=== PATIENT | female | born 1960 | race American Indian/Alaskan Native ===

== ENCOUNTER 2020-06-08 10:11 | Inpatient (IN) | payer OTHER ==
[2020-06-08 10:57] LABS: Basophils % (Auto) 0.3 % (0.0-1.8); Hematocrit 46.8 % (30.3-42.9); Hemoglobin 15.4 gm/dl (10.1-14.3); Lymphocytes # (Auto) 1.6 K/mm3 (1.2-5.4); Lymphocytes % (Auto) 22.7 % (13.4-35.0); Mean Corpuscular HGB Conc 33 % (30-34); Mean Corpuscular Volume 93 fl (79-97); Monocytes # (Auto) 0.7 K/mm3 (0.0-0.8); Monocytes % (Auto) 9.4 % (0.0-7.3); Platelet Count 223 K/mm3 (140-440); Red Blood Count 5.01 M/mm3 (3.65-5.03)
[2020-06-08 11:22] LABS: Alanine Aminotransferase 51 units/L (7-56); Albumin 3.4 g/dL (3.9-5); BUN/Creatinine Ratio 19; Blood Urea Nitrogen 19 mg/dL (7-17); Calcium 9.6 mg/dL (8.4-10.2); Hemolysis Index 25
[2020-06-08] MEDS ORDERED: ONDANSETRON 4 MG/2 ML INJ IV ONE (11:33)
--- NOTE | 2020-06-08 11:36 | Emergency Department Report ---
HPI - General Chief Complaint: Upper Respiratory Infection Time Seen by Provider: 06/08/20 11:12 - HPI HPI: This is a 59-year-old -Mexican female, who is known to be Covid positive, who presents to the emergency department with complaint of nausea, vomiting, diarrhea, body aches, intermittent fever, shortness of breath and cough. The patient came to [place] from [place] to visit her sister. When she arrived here the patient started feeling ill and was taken to [facility] of the [facility] where she stayed for 3 days and tested positive for Covid 19. The patient has a past medical history of CHF, hypertension and says that she has only 1 functional lung. Apparently the patient does not have any left- sided lung function secondary to a traumatic pneumothorax that was supposedly never fixed. The patient has been taking some [id number] medications but nothing yet today. ED Past Medical Hx - Past Medical History Hx Hypertension: Yes Hx Congestive Heart Failure: Yes Hx Diabetes: Yes Additional medical history: CHOLESTROL, "bad lung" - Surgical History Hx Cholecystectomy: Yes Additional Surgical History: hysterectomy, intestinal blockage, hernia, right ankle, tonsillectomy - Social History Smoking Status: Never Smoker Substance Use Type: None ED Review of Systems ROS: Stated complaint: FEVER,COUGH Other details as noted in HPI Comment: All other systems reviewed and negative Constitutional: chills, fever Eyes: denies: eye pain, vision change ENT: denies: ear pain, throat pain Respiratory: cough, shortness of breath Cardiovascular: denies: chest pain, palpitations Gastrointestinal: nausea, vomiting, diarrhea. denies: abdominal pain Genitourinary: denies: dysuria, discharge Musculoskeletal: myalgia. denies: joint swelling Skin: denies: rash, lesions Neurological: denies: weakness, numbness Physical Exam - Physical Exam Vital Signs: Vital Signs 06/08/20 10:19 Temperature 98.2 F Pulse Rate 106 H Respiratory 24 Rate Blood Pressure 122/57 O2 Sat by Pulse 84 Oximetry Physical Exam: GENERAL: The patient is well-developed well-nourished. HENT: Normocephalic. Atraumatic. Patient has moist mucous membranes. EYES: Extraocular motions are intact. NECK: Supple. Trachea is midline. CHEST/LUNGS: Tachypnea but no accessory muscle use. A productive sounding cough heard during examination. HEART/CARDIOVASCULAR: Regular. There is mild tachycardia. There is no murmur. ABDOMEN: Abdomen is soft, nontender. Patient has normal bowel sounds. Obese habitus. SKIN: Skin is warm and dry. NEURO: The patient is awake, alert, and oriented. The patient is cooperative. The patient has no focal neurologic deficits. Normal speech. MUSCULOSKELETAL: There is no tenderness or deformity. There is no limitation r christi of motion. There is no evidence of acute injury. ED Course Vital Signs 06/08/20 10:19 Temperature 98.2 F Pulse Rate 106 H Respiratory 24 Rate Blood Pressure 122/57 O2 Sat by Pulse 84 Oximetry - Reevaluation(s) Reevaluation #1: 06/08/20 12:47 Multiple attempts were made by the nurse for peripheral IV placement. I attempted peripheral IV placement by ultrasound guidance without success. IV team paged. ED Medical Decision Making - Lab Data Result diagrams: 06/08/20 10:26 06/08/20 10:26 - Radiology Data Radiology results: report reviewed CHEST 1 VIEW 06/08/2020 10:31 AM INDICATION / CLINICAL INFORMATION: Shortness of breath. COMPARISON: 06/02/2020 FINDINGS: SUPPORT DEVICES: None. HEART / MEDIASTINUM: No significant abnormality. LUNGS / PLEURA: Interval development of mild patchy opacities in the left mid and lower lung. No pneumothorax. ADDITIONAL FINDINGS: Unchanged elevation right hemidiaphragm. IMPRESSION: 1. Interval development of patchy opacities in the left mid and lower lung that could represent atelectasis or infectious process, possibly viral pneumonia. - Medical Decision Making This patient was already known to be positive for Covid 19 after being tested at another [facility] facility. She continues to have multiple symptoms but the shortness of breath is concerning as the patient presents with a room air pulse ox of about 84%. She was placed on supplemental oxygen via nasal cannula and s he improved into the low 90s. Chest x-ray shows bilateral patchy opacities concerning for pneumonia. Patient was started on IV antibiotics. She has been given Tylenol for headache, IV analgesia, antiemetics, steroids. The patient will be admitted to the hospital for further evaluation and treatment and was accepted for admission by the hospitalist service. Critical Care Time: Yes Critical care time in (mins) excluding proc time.: 35 Critical care attestation.: If time is entered above; I have spent that time in minutes in the direct care of this critically ill patient, excluding procedure time. Critical care time was spent on this patient in doing her initial evaluation, multiple re- evaluations, ordering and interpretation of labs and imaging, discussions with the patient, IV treatment with IV fluid, IV analgesia, IV antibiotics, antiemetics. Critical Care Time: 35 minutes ED Disposition Clinical Impression: COVID-19, Hypoxia Bilateral pneumonia Qualifiers: Pneumonia type: due to unspecified organism Lung location: unspecified part of lung Qualified Code(s): J18.9 - Pneumonia, unspecified organism Disposition: DC-09 OP ADMIT IP TO THIS HOSP Is pt being admited?: Yes Condition: Fair Time of Disposition: 13:03
--- NOTE | 2020-06-08 11:39 | XRay Report ---
CHEST 1 VIEW 06/08/2020 10:31 AM INDICATION / CLINICAL INFORMATION: Shortness of breath. COMPARISON: 06/02/2020 FINDINGS: SUPPORT DEVICES: None. HEART / MEDIASTINUM: No significant abnormality. LUNGS / PLEURA: Interval development of mild patchy opacities in the left mid and lower lung. No pneu mothorax. ADDITIONAL FINDINGS: Unchanged elevation right hemidiaphragm. IMPRESSION: 1. Interval development of patchy opacities in the left mid and lower lung that could represent atele ctasis or infectious process, possibly viral pneumonia. Signer Name: Tyrone Mae MD Signed: 06/08/2020 11:34 AM Workstation Name: [id number]
[2020-06-08] MEDS ORDERED: AZITHROMYCIN 500 MG in SODIUM CHLORIDE 0.9% 250ML 250 ML IV ONE (12:30)
[2020-06-08 12:50] LABS: C-Reactive Protein 7.2 mg/dL (0.00-1.30)
[2020-06-08] MEDS ORDERED: methylPREDNISolone Sod Succinate 125 MG/2 ML INJ IV ONE (13:04)
[2020-06-08] MEDS ORDERED: methylPREDNISolone Sod Succinate 40 MG/1 ML INJ ONE (14:19)
[2020-06-08] MEDS ORDERED: ONDANSETRON 4 MG/2 ML INJ ONE (14:19)
[2020-06-08] MEDS ORDERED: MORPHINE 2 MG/1 ML INJ IV ONE (14:39)
[2020-06-08] MEDS ORDERED: ACETAMINOPHEN 325 MG TAB PO ONE (14:40)
[2020-06-08] MEDS ORDERED: ACETAMINOPHEN 325 MG TAB ONE (14:47)
[2020-06-08] MEDS ORDERED: MORPHINE 2 MG/1 ML INJ ONE ×2 (14:48→21:52)
--- NOTE | 2020-06-08 15:10 | History and Physical Report ---
History of Present Illness Date of examination: 06/08/20 Date of admission: 06/08/20 13:04 Chief complaint: Worsening shortness of breath and cough History of present illness: 59-year-old -[place] female patient who was recently diagnosed with positive COVID-19 at [facility] admitted for 3 days and was discharged presented to the emergency room with upper respiratory symptoms and worsening shortness of breath, chest pain and cough . Initial work-up in the emergency room with chest x-ray revealed Patchy opacities in the left mid and lower lung could represent atelectasis or infectious process possibly viral pneumonia. Patient was placed in contact and droplet's isolation, admitted for further evaluation of "positive COVID infection. Past History Past Medical History: heart failure, hypertension, other (Chronic lung problems) Past Surgical History: cholecystectomy, hysterectomy, hernia repair, tonsillectomy, Other Social history: denies: smoking, alcohol abuse, prescription drug abuse Family history: hypertension Medications and Allergies Allergies Allergy/AdvReac Type Severity Reaction Status Date / Time ketorolac [From Toradol] Allergy Shortness Verified 06/02/20 10:20 of Breath Penicillins Allergy Shortness Verified 06/02/20 10:20 of Breath tramadol Allergy Shortness Verified 06/02/20 10:20 of Breath Review of Systems Constitutional: no weight loss, no weight gain, no fever, no chills Ears, nose, mouth and throat: no nasal congestion, no nasal discharge Cardiovascular: shortness of breath, no chest pain, no orthopnea, no palpitations Respiratory: cough, shortness of breath Gastrointestinal: no abdominal pain, no nausea, no vomiting Genitourinary Female: no pelvic pain, no flank pain, no dysuria Musculoskeletal: no myalgias, no arthritis Integumentary: no rash, no lesions Neurological: weakness, no seizures, no syncope, no tremors Psychiatric: no anxiety, no depression Endocrine: no polydipsia, no polyuria Hematologic/Lymphatic: no easy bruising, no easy bleeding Allergic/Immunologic: no urticaria, no allergic rhinitis Exam - Constitutional Vitals: Temp Pulse Resp BP Pulse Ox 98.2 F 100 H 31 H 126/78 97 06/08/20 10:19 06/08/20 14:00 06/08/20 14:00 06/08/20 14:00 06/08/20 14:00 General appearance: Present: mild distress, well-nourished, obese - EENT Eyes: Present: PERRL, EOM intact - Neck Neck: Present: supple, normal ROM - Respiratory Respiratory effort: normal Respiratory: bilateral: diminished, rhonchi, negative: rales, wheezing - Cardiovascular Rhythm: regular Heart Sounds: Present: S1 & S2 - Extremities Extremities: no ischemia, No edema - Abdominal General gastrointestinal: Present: soft, non-tender, non-distended, normal bowel sounds - Integumentary Integumentary: Present: clear, warm - Musculoskeletal Musculoskeletal: strength equal bilaterally, generalized weakness - Psychiatric Psychiatric: appropriate mood/affect, cooperative - Neurologic Neurologic: moves all extremities HEART Score - HEART Score Troponin: Troponin T < 0.010 ng/mL (0.00-0.029) 06/08/20 11:59 Results - Labs CBC & Chem 7: 06/08/20 10:26 06/08/20 10:26 Labs: Abnormal lab results 06/08/20 06/08/20 06/08/20 Range/Units 10:26 10:26 11:59 Hgb 15.4 H (10.1-14.3) gm/dl Hct 46.8 H (30.3-42.9) % RDW 13.0 L (13.2-15.2) % [place] % (Auto) 9.4 H (0.0-7.3) % Sodium 133 L (137-145) mmol/L Chloride 92.8 L (98-107) mmol/L BUN 19 H (7-17) mg/dL Glucose 194 H (65-100) mg/dL AST 58 H (5-40) units/L Lactate Dehydrogenase 265 H (91-180) units/L C-Reactive Protein 7.20 H (0.00-1.30) mg/dL Albumin 3.4 L (3.9-5) g/dL Assessment and Plan --Recently positive COVID-19; Droplet and contact isolation precautions PPE protocols, supportive care Check inflammatory markers O2 sats, resting room air, ambulatory room air ID consult --Left-sided pneumonia; bacterial versus viral Empiric antibiotics Rocephin and Zithromax Follow cultures --Mild hyponatremia; IV normal saline Closely monitor electrolytes --DVT prophylaxis; Lovenox --Full CODE STATUS; Monitor closely and adjust the management as needed Plan of care reviewed with the patient and her nurse
[2020-06-08] MEDS ORDERED: ACETAMINOPHEN 325 MG TAB PO PRN (15:11)
[2020-06-08] MEDS ORDERED: SODIUM CHLORIDE 0.9% 1000 ML 1,000 ML ONE (17:12)
[2020-06-08] MEDS: SODIUM CHLORIDE 0.9% 1000 ML 1,000 ML IV SCH (17:13)
[2020-06-08] MEDS: MORPHINE 2 MG/1 ML INJ IV PRN (22:05)
[2020-06-09] MEDS: guaiFENesin DM 200/20 MG ORAL LIQD 10 ML PO PRN ×3 (02:05→14:41)
[2020-06-09] MEDS: MORPHINE 2 MG/1 ML INJ IV PRN (02:06)
[2020-06-09] MEDS: DEXAMETHASONE 4 MG TAB PO SCH (09:11)
[2020-06-09] MEDS: SODIUM CHLORIDE 0.9% 1000 ML 1,000 ML IV SCH (09:11)
[2020-06-09] MEDS: AZITHROMYCIN 250 MG TAB PO SCH (09:12)
[2020-06-09] MEDS ORDERED: dexAMETHasone 4 MG/ML VIAL IV SCH (10:00)
[2020-06-09] MEDS ORDERED: cefTRIAXone/NS 1 GM/50 ML 1 GM/50 ML BAG IV SCH (10:00)
[2020-06-09] MEDS ORDERED: AZITHROMYCIN 500 MG in SODIUM CHLORIDE 0.9% 250ML 250 ML IV SCH (10:00)
--- NOTE | 2020-06-09 13:50 | Progress Note ---
Assessment and Plan Assessment and plan: --Recently positive COVID-19; COVID-19 test positive today 06/09/2020 Droplet and contact isolation precautions PPE protocols, supportive care Check inflammatory markers O2 sats, resting room air, ambulatory room air ID consult, COVID-19 test pending --Left-sided pneumonia; bacterial versus viral Empiric antibiotics Rocephin and Zithromax Follow cultures --Mild hyponatremia; IV normal saline Closely monitor electrolytes --DVT prophylaxis; Lovenox --Full CODE STATUS; Monitor closely and adjust the management as needed Plan of care reviewed with the patient and her nurse History Interval history: Patient seen and examined medical records reviewed Recently positive COVID, isolation precautions and PPE protocols observed Patient feels slightly better COVID test positive Vital signs noted Hospitalist Physical - Constitutional Vitals: Temp Pulse Resp BP Pulse Ox 97.8 F 87 20 140/71 100 06/09/20 04:42 06/09/20 04:42 06/09/20 04:42 06/09/20 04:42 06/09/20 13:12 General appearance: Present: mild distress, well-nourished, obese - EENT Eyes: Present: PERRL, EOM intact - Neck Neck: Present: supple, normal ROM - Respiratory Respiratory effort: normal Respiratory: bilateral: diminished, negative: rales, rhonchi, wheezing - Cardiovascular Rhythm: regular Heart Sounds: Present: S1 & S2 - Extremities Extremities: no ischemia, No edema - Abdominal General gastrointestinal: soft, non-tender, non-distended - Integumentary Integumentary: Present: clear, warm - Psychiatric Psychiatric: appropriate mood/affect, cooperative - Neurologic Neurologic: moves all extremities HEART Score - HEART Score Troponin: Troponin T < 0.010 ng/mL (0.00-0.029) 06/08/20 11:59 Results - Labs CBC & Chem 7: 06/08/20 10:26 06/08/20 10:26 Labs: Laboratory Last Values WBC 7.1 K/mm3 (4.5-11.0) 06/08/20 10:26 RBC 5.01 M/mm3 (3.65-5.03) 06/08/20 10:26 Hgb 15.4 gm/dl (10.1-14.3) H 06/08/20 10:26 Hct 46.8 % (30.3-42.9) H 06/08/20 10: MCV 93 fl (79-97) 06/08/20 10: MCH 31 pg (28-32) 06/08/20 10: MCHC 33 % (30-34) 06/08/20 10: RDW 13.0 % (13.2-15.2) L 06/08/20 10:26 Plt Count 223 K/mm3 (140-440) 06/08/20 10:26 Lymph % (Auto) 22.7 % (13.4-35.0) 06/08/20 10: [place] % (Auto) 9.4 % (0.0-7.3) H 06/08/20 10: Eos % (Auto) 0.0 % (0.0-4.3) 06/08/20 10: Baso % (Auto) 0.3 % (0.0-1.8) 06/08/20 10: Lymph # 1.6 K/mm3 (1.2-5.4) 06/08/20 10: [place] # 0.7 K/mm3 (0.0-0.8) 06/08/20 10: Eos # 0.0 K/mm3 (0.0-0.4) 06/08/20 10: Baso # 0.0 K/mm3 (0.0-0.1) 06/08/20 10:26 Seg Neutrophils % 67.6 % (40.0-70.0) 06/08/20 10: Seg Neutrophils # 4.8 K/mm3 (1.8-7.7) 06/08/20 10:26 D-Dimer 146.29 ng/mlDDU (0-234) 06/08/20 11:59 Sodium 133 mmol/L (137-145) L 06/08/20 10:26 Potassium 4.9 mmol/L (3.6-5.0) 06/08/20 10: Chloride 92.8 mmol/L (98-107) L 06/08/20 10: Carbon Dioxide 24 mmol/L (22-30) 06/08/20 10:26 Anion Gap 21 mmol/L 06/08/20 10:26 BUN 19 mg/dL (7-17) H 06/08/20 10:26 Creatinine 1.0 mg/dL (0.7-1.2) 06/08/20 10:26 Estimated GFR > 60 ml/min 06/08/20 10:26 BUN/Creatinine Ratio 19 % 06/08/20 10:26 Glucose 194 mg/dL (65-100) H 06/08/20 10:26 Calcium 9.6 mg/dL (8.4-10.2) 06/08/20 10:26 Ferritin 1097.0 ng/mL (13.0-400.0) H 06/08/20 11:59 Total Bilirubin 0.20 mg/dL (0.1-1.2) 06/08/20 10:26 AST 58 units/L (5-40) H 06/08/20 10:26 ALT 51 units/L (7-56) 06/08/20 10:26 Alkaline Phosphatase 90 units/L (35-129) 06/08/20 10:26 Lactate Dehydrogenase 265 units/L (91-180) H 06/08/20 11:59 Troponin T < 0.010 ng/mL (0.00-0.029) 06/08/20 11:59 C-Reactive Protein 7.20 mg/dL (0.00-1.30) H 06/08/20 11:59 NT-Pro-B Natriuret Pep 31.82 pg/mL (0-900) 06/08/20 11:59 Total Protein 7.4 g/dL (6.3-8.2) 06/08/20 10:26 Albumin 3.4 g/dL (3.9-5) L 06/08/20 10:26 Albumin/Globulin Ratio 0.9 % 06/08/20 10:26 Procalcitonin 0.17 ng/mL (<0.15) 06/08/20 11:59 Nasal Screen MRSA (PCR) Positive (Negative) 06/09/20 Unknown Mahoney/IV: Voiding Method Bedside Commode IV Catheter Type [Right Peripheral IV Antecubital] IV Catheter Type [Left Upper Peripheral IV arm] Active Medications - Current Medications Current Medications: Generic Name Dose Route Start Last Admin Trade Name Freq PRN Reason Stop Dose Admin Acetaminophen 650 mg 06/08/20 15:11 Tylenol PO Q4H PRN Pain, Mild (1-3) Azithromycin 500 mg 06/09/20 10:00 06/09/20 09:12 Zithromax PO 500 mg QDAY MARIEL Administration Dexamethasone 6 mg 06/09/20 10:00 06/09/20 09:11 Decadron PO 6 mg DAILY MARIEL Administration Guaifenesin 10 ml 06/08/20 15:19 06/09/20 10:22 Guaifenesin Dm Syrup PO 10 ml Q4H PRN Administration Cough Sodium Chloride 1,000 mls @ 100 mls/hr 06/08/20 15:15 06/09/20 09:11 Nacl 0.9% 1000 Ml IV 100 mls/hr DIRECT MARIEL Administration Ceftriaxone Sodium 1 gm in 50 mls @ 100 mls/hr 06/09/20 10:00 06/09/20 09:11 Rocephin/Ns 1 Gm/50 Ml IV 100 mls/hr Q24HR MARIEL Administration Protocol Morphine Sulfate 2 mg 06/08/20 15:11 06/09/20 02:06 Morphine IV 2 mg Q4H PRN Administration Pain, Moderate (4-6)
[2020-06-10] MEDS: guaiFENesin DM 200/20 MG ORAL LIQD 10 ML PO PRN ×2 (01:07→05:46)
[2020-06-10] MEDS: MORPHINE 2 MG/1 ML INJ IV PRN ×2 (01:07→20:29)
[2020-06-10] MEDS: SODIUM CHLORIDE 0.9% 1000 ML 1,000 ML IV SCH (05:53)
[2020-06-10 08:57] LABS: BUN/Creatinine Ratio 27; Blood Urea Nitrogen 24 mg/dL (7-17); Calcium 8.7 mg/dL (8.4-10.2); Hemolysis Index 72
--- NOTE | 2020-06-10 09:17 | Progress Note ---
Assessment and Plan Assessment and plan: --Recently positive COVID-19; COVID-19 test positive today 06/09/2020 Droplet and contact isolation precautions PPE protocols, supportive care Check inflammatory markers, steroids O2 sats, resting room air, ambulatory room air ID consult, --Hyperkalemia; potassium 5.6, 1 dose Kayexalate Monitor lites --Left-sided pneumonia; bacterial versus viral Follow cultures. DC Rocephin and Zithromax --Mild hyponatremia; significantly improved Continue IV normal saline, monitor electrolytes --DVT prophylaxis; Lovenox --Full CODE STATUS; Monitor closely and adjust the management as needed Plan of care reviewed with the patient and her nurse Follow ID evaluation recommendations Possible discharge in 1 to 2 days if stable Home oxygen evaluation prior to discharge History Interval history: Patient seen and examined Isolation precautions Patient's chart and medications reviewed Positive COVID 19 test Patient is already on isolation Feels really tired Vital signs reviewed Hospitalist Physical - Constitutional Vitals: Temp Pulse Resp BP Pulse Ox 97.4 F L 90 20 117/81 90 06/10/20 05:19 06/10/20 05:19 06/10/20 05:19 06/10/20 05:19 06/10/20 05:19 General appearance: Present: mild distress, well-nourished, obese - EENT Eyes: Present: PERRL, EOM intact - Neck Neck: Present: supple, normal ROM - Respiratory Respiratory effort: normal Respiratory: bilateral: diminished, negative: rales, rhonchi, wheezing - Cardiovascular Rhythm: regular Heart Sounds: Present: S1 & S2 - Extremities Extremities: no ischemia, pulses intact - Abdominal General gastrointestinal: soft, non-tender, non-distended, normal bowel sounds - Integumentary Integumentary: Present: clear, warm - Psychiatric Psychiatric: appropriate mood/affect, cooperative - Neurologic Neurologic: moves all extremities HEART Score - HEART Score Troponin: Troponin T < 0.010 ng/mL (0.00-0.029) 06/08/20 11:59 Results - Labs CBC & Chem 7: 06/08/20 10:26 06/10/20 07:37 Labs: Laboratory Last Values WBC 7.1 K/mm3 (4.5-11.0) 06/08/20 10:26 RBC 5.01 M/mm3 (3.65-5.03) 06/08/20 10: Hgb 15.4 gm/dl (10.1-14.3) H 06/08/20 10:26 Hct 46.8 % (30.3-42.9) H 06/08/20 10:26 MCV 93 fl (79-97) 06/08/20 10: MCH 31 pg (28-32) 06/08/20 10: MCHC 33 % (30-34) 06/08/20 10: RDW 13.0 % (13.2-15.2) L 06/08/20 10: Plt Count 223 K/mm3 (140-440) 06/08/20 10: Lymph % (Auto) 22.7 % (13.4-35.0) 06/08/20 10: [place] % (Auto) 9.4 % (0.0-7.3) H 06/08/20 10: Eos % (Auto) 0.0 % (0.0-4.3) 06/08/20 10: Baso % (Auto) 0.3 % (0.0-1.8) 06/08/20 10: Lymph # 1.6 K/mm3 (1.2-5.4) 06/08/20 10: [place] # 0.7 K/mm3 (0.0-0.8) 06/08/20 10: Eos # 0.0 K/mm3 (0.0-0.4) 06/08/20 10: Baso # 0.0 K/mm3 (0.0-0.1) 06/08/20 10: Seg Neutrophils % 67.6 % (40.0-70.0) 06/08/20 10: Seg Neutrophils # 4.8 K/mm3 (1.8-7.7) 06/08/20 10:26 D-Dimer 146.29 ng/mlDDU (0-234) 06/08/20 11:59 Sodium 138 mmol/L (137-145) 06/10/20 07:37 Potassium 5.6 mmol/L (3.6-5.0) H 06/10/20 07:37 Chloride 100.5 mmol/L (98-107) 06/10/20 07:37 Carbon Dioxide 20 mmol/L (22-30) L 06/10/20 07:37 Anion Gap 23 mmol/L 06/10/20 07:37 BUN 24 mg/dL (7-17) H 06/10/20 07:37 Creatinine 0.9 mg/dL (0.7-1.2) 06/10/20 07:37 Estimated GFR > 60 ml/min 06/10/20 07:37 BUN/Creatinine Ratio 27 % 06/10/20 07:37 Glucose 236 mg/dL (65-100) H 06/10/20 07:37 Calcium 8.7 mg/dL (8.4-10.2) 06/10/20 07:37 Ferritin 1097.0 ng/mL (13.0-400.0) H 06/08/20 11:59 Total Bilirubin 0.20 mg/dL (0.1-1.2) 06/08/20 10:26 AST 58 units/L (5-40) H 06/08/20 10:26 ALT 51 units/L (7-56) 06/08/20 10:26 Alkaline Phosphatase 90 units/L (35-129) 06/08/20 10:26 Lactate Dehydrogenase 265 units/L (91-180) H 06/08/20 11:59 Troponin T < 0.010 ng/mL (0.00-0.029) 06/08/20 11:59 C-Reactive Protein 7.20 mg/dL (0.00-1.30) H 06/08/20 11:59 NT-Pro-B Natriuret Pep 31.82 pg/mL (0-900) 06/08/20 11:59 Total Protein 7.4 g/dL (6.3-8.2) 06/08/20 10:26 Albumin 3.4 g/dL (3.9-5) L 06/08/20 10:26 Albumin/Globulin Ratio 0.9 % 06/08/20 10:26 Procalcitonin 0.17 ng/mL (<0.15) 06/08/20 11:59 Nasal Screen MRSA (PCR) Positive (Negative) 06/09/20 Unknown Coronavirus (PCR) Positive (Negative) A 06/08/20 Unknown Mahoney/IV: Voiding Method Bedside Commode IV Catheter Type [Right Peripheral IV Antecubital] IV Catheter Type [Left Upper Peripheral IV arm] Active Medications - Current Medications Current Medications: Generic Name Dose Route Start Last Admin Trade Name Freq PRN Reason Stop Dose Admin Acetaminophen 650 mg 06/08/20 15:11 Tylenol PO Q4H PRN Pain, Mild (1-3) Azithromycin 500 mg 06/09/20 10:00 06/09/20 09:12 Zithromax PO 500 mg QDAY MARIEL Administration Dexamethasone 6 mg 06/09/20 10:00 06/09/20 09:11 Decadron PO 6 mg DAILY MARIEL Administration Guaifenesin 10 ml 06/08/20 15:19 06/10/20 05:46 Guaifenesin Dm Syrup PO 10 ml Q4H PRN Administration Cough Sodium Chloride 1,000 mls @ 100 mls/hr 06/08/20 15:15 06/10/20 05:53 Nacl 0.9% 1000 Ml IV 100 mls/hr DIRECT MARIEL Administration Ceftriaxone Sodium 1 gm in 50 mls @ 100 mls/hr 06/09/20 10:00 06/09/20 09:11 Rocephin/Ns 1 Gm/50 Ml IV 100 mls/hr Q24HR MARIEL Administration Protocol Morphine Sulfate 2 mg 06/08/20 15:11 06/10/20 01:07 Morphine IV 2 mg Q4H PRN Administration Pain, Moderate (4-6) Pseudoephedrine/Acetam/Chlorphenir 10 ml 06/10/20 09:15 Robitussin Ac PO Q6H PRN Cough
[2020-06-10] MEDS: guaiFENesin/CODEINE 100-10MG ORAL LIQD 5 ML PO PRN ×2 (09:39→16:44)
[2020-06-10] MEDS: AZITHROMYCIN 250 MG TAB PO SCH (09:40)
[2020-06-10] MEDS: DEXAMETHASONE 4 MG TAB PO SCH (09:40)
--- NOTE | 2020-06-10 10:06 | Event Note ---
Date: 06/10/20 COVID pneumonia. Hypoxic. Markers elevated. Procalcitonin normal. Recs: steroids: dexamethasone 6 mg daily x 10 days IV Remdesivir x 5 days monitor markers
[2020-06-10] MEDS ORDERED: SODIUM CHLORIDE 0.9% 50 ML IVPB IV ONE (12:00)
[2020-06-10] MEDS ORDERED: REMDESIVIR 200 MG in SODIUM CHLORIDE 0.9% 250ML 250 ML IV ONE (12:00)
[2020-06-10] MEDS ORDERED: SODIUM POLYSTYRENE 15 GM/60 ML ORAL LIQD PO ONE (14:59)
[2020-06-11] MEDS: guaiFENesin/CODEINE 100-10MG ORAL LIQD 5 ML PO PRN (01:33)
[2020-06-11] MEDS: ALPRAZolam 0.25 MG TAB PO PRN (01:33)
[2020-06-11] MEDS: INSULIN REGULAR, HUMAN 100 UNITS/1 ML SUB-Q SCH ×5 (03:45→23:27)
[2020-06-11] MEDS: SODIUM CHLORIDE 0.9% 1000 ML 1,000 ML IV SCH ×2 (05:27→18:53)
[2020-06-11] MEDS: DEXAMETHASONE 4 MG TAB PO SCH (12:23)
--- NOTE | 2020-06-11 14:13 | Progress Note ---
Assessment and Plan Assessment and plan: --Recently positive COVID-19; COVID-19 test positive 06/09/2020 Droplet and contact isolation precautions PPE protocols, supportive care Check inflammatory markers, steroids O2 sats, resting room air, ambulatory room air D-dimer; 146.29, CRP; 7.20 Ferritin; 1097, LDH; 265 Continue dexamethasone 6 mg daily x 10 days ID started IV Remdesivir x 5 days --Hyperkalemia; potassium 5.6, 1 dose Kayexalate Monitor electrolytes --Left-sided pneumonia; bacterial versus viral Follow cultures. DC Rocephin and Zithromax --Mild hyponatremia; significantly improved Continue IV normal saline, monitor electrolytes --Morbid obesity; BMI 40.0 Patient needs weight reduction when medically stable --DVT prophylaxis; Lovenox --Full CODE STATUS; Monitor closely and adjust the management as needed Plan of care reviewed with the patient and her nurse Follow ID evaluation recommendations Possible discharge in 1 to 2 days if stable Home oxygen evaluation prior to discharge Plan of care reviewed with the patient and her nurse History Interval history: COVID positive patient; Patient seen and examined this morning at the bedside Isolation precautions, PPE protocols observed Patient feels slightly better mild nausea Vital signs noted Hospitalist Physical - Constitutional Vitals: Temp Pulse Resp BP Pulse Ox 97.6 F 79 18 128/104 94 06/11/20 04:14 06/11/20 04:14 06/11/20 04:14 06/11/20 04:13 06/11/20 04:13 General appearance: Present: mild distress, well-nourished, obese - EENT Eyes: Present: PERRL, EOM intact - Neck Neck: Present: supple, normal ROM - Respiratory Respiratory effort: normal Respiratory: bilateral: diminished, rhonchi, negative: rales, wheezing - Cardiovascular Rhythm: regular Heart Sounds: Present: S1 & S2 - Extremities Extremities: no ischemia, No edema - Abdominal General gastrointestinal: soft, non-tender, non-distended, normal bowel sounds - Integumentary Integumentary: Present: clear, warm - Psychiatric Psychiatric: appropriate mood/affect, cooperative - Neurologic Neurologic: moves all extremities HEART Score - HEART Score Troponin: Troponin T < 0.010 ng/mL (0.00-0.029) 06/08/20 11:59 Results - Labs CBC & Chem 7: 06/08/20 10:26 06/10/20 07:37 Labs: Laboratory Last Values WBC 7.1 K/mm3 (4.5-11.0) 06/08/20 10: RBC 5.01 M/mm3 (3.65-5.03) 06/08/20 10: Hgb 15.4 gm/dl (10.1-14.3) H 06/08/20 10:26 Hct 46.8 % (30.3-42.9) H 06/08/20 10: MCV 93 fl (79-97) 06/08/20 10: MCH 31 pg (28-32) 06/08/20 10: MCHC 33 % (30-34) 06/08/20 10: RDW 13.0 % (13.2-15.2) L 06/08/20 10: Plt Count 223 K/mm3 (140-440) 06/08/20 10: Lymph % (Auto) 22.7 % (13.4-35.0) 06/08/20 10: [place] % (Auto) 9.4 % (0.0-7.3) H 06/08/20 10: Eos % (Auto) 0.0 % (0.0-4.3) 06/08/20 10: Baso % (Auto) 0.3 % (0.0-1.8) 06/08/20 10: Lymph # 1.6 K/mm3 (1.2-5.4) 06/08/20 10: Warren # 0.7 K/mm3 (0.0-0.8) 06/08/20 10: Eos # 0.0 K/mm3 (0.0-0.4) 06/08/20 10: Baso # 0.0 K/mm3 (0.0-0.1) 06/08/20 10: Seg Neutrophils % 67.6 % (40.0-70.0) 06/08/20 10: Seg Neutrophils # 4.8 K/mm3 (1.8-7.7) 06/08/20 10: D-Dimer 146.29 ng/mlDDU (0-234) 06/08/20 11:59 Sodium 138 mmol/L (137-145) 06/10/20 07:37 Potassium 5.6 mmol/L (3.6-5.0) H 06/10/20 07:37 Chloride 100.5 mmol/L (98-107) 06/10/20 07:37 Carbon Dioxide 20 mmol/L (22-30) L 06/10/20 07:37 Anion Gap 23 mmol/L 06/10/20 07:37 BUN 24 mg/dL (7-17) H 06/10/20 07:37 Creatinine 0.9 mg/dL (0.7-1.2) 06/10/20 07:37 Estimated GFR > 60 ml/min 06/10/20 07:37 BUN/Creatinine Ratio 27 % 06/10/20 07:37 Glucose 236 mg/dL (65-100) H 06/10/20 07:37 POC Glucose 162 (70-105) H 06/11/20 12:01 Calcium 8.7 mg/dL (8.4-10.2) 06/10/20 07:37 Ferritin 1097.0 ng/mL (13.0-400.0) H 06/08/20 11:59 Total Bilirubin 0.20 mg/dL (0.1-1.2) 06/08/20 10:26 AST 58 units/L (5-40) H 06/08/20 10:26 ALT 51 units/L (7-56) 06/08/20 10:26 Alkaline Phosphatase 90 units/L (35-129) 06/08/20 10:26 Lactate Dehydrogenase 265 units/L (91-180) H 06/08/20 11:59 Troponin T < 0.010 ng/mL (0.00-0.029) 06/08/20 11:59 C-Reactive Protein 7.20 mg/dL (0.00-1.30) H 06/08/20 11:59 NT-Pro-B Natriuret Pep 31.82 pg/mL (0-900) 06/08/20 11:59 Total Protein 7.4 g/dL (6.3-8.2) 06/08/20 10:26 Albumin 3.4 g/dL (3.9-5) L 06/08/20 10:26 Albumin/Globulin Ratio 0.9 % 06/08/20 10:26 Procalcitonin 0.17 ng/mL (<0.15) 06/08/20 11:59 Nasal Screen MRSA (PCR) Positive (Negative) 06/09/20 Unknown Coronavirus (PCR) Positive (Negative) A 06/08/20 Unknown Mahoney/IV: Voiding Method Diaper IV Catheter Type [Right Upper Mid-line arm] IV Catheter Type [Right Peripheral IV Antecubital] IV Catheter Type [Left Upper Peripheral IV arm] Active Medications - Current Medications Current Medications: Generic Name Dose Route Start Last Admin Trade Name Freq PRN Reason Stop Dose Admin Acetaminophen 650 mg 06/08/20 15:11 Tylenol PO Q4H PRN Pain, Mild (1-3) Alprazolam 0.25 mg 06/10/20 09:54 06/11/20 01:33 Xanax PO 0.25 mg Q8H PRN Administration Anxiety Dexamethasone 6 mg 06/09/20 10:00 06/11/20 12:23 Decadron PO 06/18/20 10:01 6 mg DAILY MARIEL Administration Sodium Chloride 1,000 mls @ 100 mls/hr 06/08/20 15:15 06/11/20 05:27 Nacl 0.9% 1000 Ml IV 100 mls/hr DIRECT MARIEL Administration REMDESIVIR 100 mg/ Sodium 250 mls @ 500 mls/hr 06/11/20 21:00 Chloride IV 06/14/20 21:29 Q24HR@2100 MARIEL Insulin Human Regular 0 units 06/11/20 03:30 06/11/20 12:51 Humulin R SUB-Q 2 units ACHS MARIEL Administration Protocol Morphine Sulfate 2 mg 06/08/20 15:11 06/10/20 20:29 Morphine IV 2 mg Q4H PRN Administration Pain, Moderate (4-6) Pseudoephedrine/Acetam/Chlorphenir 10 ml 06/10/20 09:30 06/11/20 01:33 Robitussin Ac PO 10 ml Q6H PRN Administration Cough Sodium Chloride 50 ml 06/11/20 21:00 Nacl 0.9% IV 06/14/20 21:01 Q24H MARIEL
--- NOTE | 2020-06-11 19:17 | Consultation ---
History of Present Illness - Reason for Consult Consult date: 06/11/20 covid Requesting physician: HUMBERTO BAJWA - History of Present Illness 59-year-old female with history of obesity, who was recently diagnosed with positive COVID-19 at [facility] admitted for 3 days and was discharged, admitted to [facility] on 06/08/2020 due to several days history of worsening shortness of breath cough and generalized malaise. On admission, temperature 98.2, O2 sat down to 84%. D-dimer 146, ferritin 1097, CRP 7.2. AST 58. Procalcitonin 0.1. MRSA screening positive. Patient currently on 2 L nasal cannula sats 94%. Review of Systems: positive in bold print General: + fever, +chills, +malaise Cutaneous: rash, pruritus Head: headaches or injury Eyes: changes in vision, eye pain, double vision Ears: ear pain, ear discharge, ringing or hearing loss Nose: nose bleeding, stuffiness Mouth & throat: bleeding gums, horseness, no dental problems, or swollen glands Neck: no pain, node enlargement/lumps, tyroid enlargement or tenderness Respiratory: +SOB, +cough, +BANKS, wheezing, sputum, hemoptysis, pleuritic chest pain Cardiovascular: chest pain, leg edema, cyanosis, BANKS, orthopnea Musculoskeletal: edema Gastrointestinal: nausea, vomiting, hematemesis, diarrhea, constipation, melena, bright red blood in stools, fecal incontinence, jaundice Genitourinary/Reproductive: frequent urination, dysuria, hematuria, incontinence Neurogical: seizures, headaches, weakness, paresthesias, loss of speech or vision; memory loss, vertigo, tremors, numbness Psychiatric: stable mood; excessive anxiety, sadness or moodiness Past History Past Medical History: heart failure, hypertension, other (Chronic lung problems) Past Surgical History: cholecystectomy, hysterectomy, hernia repair, tonsillectomy, Other Social history: denies: smoking, alcohol abuse, prescription drug abuse Family history: hypertension Medications and Allergies Allergies Allergy/AdvReac Type Severity Reaction Status Date / Time ketorolac [From Toradol] Allergy Shortness Verified 06/02/20 10:20 of Breath Penicillins Allergy Shortness Verified 06/02/20 10:20 of Breath tramadol Allergy Shortness Verified 06/02/20 10:20 of Breath Home Medications Medication Instructions Recorded Confirmed Last Taken Type [place] 10-325 mg TAB 06/09/20 Unknown History metFORMIN 06/09/20 06/08/20 10:00 History 1000 MG Active Meds: Active Medications Acetaminophen (Tylenol) 650 mg PO Q4H PRN PRN Reason: Pain, Mild (1-3) Alprazolam (Xanax) 0.25 mg PO Q8H PRN PRN Reason: Anxiety Last Admin: 06/11/20 01:33 Dose: 0.25 mg Documented by: Dexamethasone (Decadron) 6 mg PO DAILY [facility] Stop: 06/18/20 10:01 Last Admin: 06/11/20 12:23 Dose: 6 mg Documented by: Sodium Chloride (Nacl 0.9% 1000 Ml) 1,000 mls @ 100 mls/hr IV DIRECT MARIEL Last Admin: 06/11/20 18:53 Dose: 100 mls/hr Documented by: REMDESIVIR 100 mg/ Sodium (Chloride) 250 mls @ 500 mls/hr IV Q24HR@2100 [facility] Stop: 06/14/20 21:29 Insulin Human Regular (Humulin R) 0 units SUB-Q ACHS [facility]; Protocol Last Admin: 06/11/20 18:50 Dose: 3 units Documented by: Morphine Sulfate (Morphine) 2 mg IV Q4H PRN PRN Reason: Pain, Moderate (4-6) Last Admin: 06/10/20 20:29 Dose: 2 mg Documented by: Pseudoephedrine/Acetam/Chlorphenir (Robitussin Ac) 10 ml PO Q6H PRN PRN Reason: Cough Last Admin: 06/11/20 01:33 Dose: 10 ml Documented by: Sodium Chloride (Nacl 0.9%) 50 ml IV Q24H [facility] Stop: 06/14/20 21:01 Physical Examination - Physical Exam Narrative exam: Exam reviewed hospitalist notes, limited due to conservation of PPE General appearance: limited due to conservation of PPE Eyes: limited due to conservation of PPE HENT: Atraumatic; limited due to conservation of PPE Lungs: limited due to conservation of PPE CV: limited due to conservation of PPE Abdomen: limited due to conservation of PPE Extremities: limited due to conservation of PPE Skin: limited due to conservation of PPE Psych: limited due to conservation of PPE - Constitutional Vitals: Vital Signs Temp Pulse Resp BP Pulse Ox 98.7 F 76 20 165/76 94 06/11/20 17:00 06/11/20 17:00 06/11/20 17:00 06/11/20 17:00 06/11/20 17:00 Temperature -Last 24 Hours Temperature 98.7 F Temperature 98.2 F Temperature 97.6 F Temperature 97.6 F Results - Labs CBC & Chem 7: 06/08/20 10:26 06/10/20 07:37 Labs: Abnormal lab results 06/11/20 06/11/20 06/11/20 Range/Units 01:57 09:12 12:01 POC Glucose 333 H 161 H 162 H (70-105) 06/11/20 Range/Units 17:12 POC Glucose 219 H (70-105) Assessment and Plan Cultures: None Assessment: 59-year-old female with history of obesity, who was recently diagnosed with positive COVID-19 at [facility] admitted for 3 days and was discharged, admitted to [facility] on 06/08/2020 due to several days history of worsening shortness of breath cough and generalized malaise: #Sepsis: likely due to bilateral pneumonia #Bilateral pneumonia: Patient presented with a week of symptoms, chest x-ray with diffuse bilateral infiltrates, admission O2 sats on room air. Inflamatory markers elevated - ferritin 1097, CRP 7.2., D-dimer normal. Likely cytokine release syndrome. #Acute hypoxemic respiratory failure: Currently on 2 L nasal cannula sats 94%. #Elevated LFTs: from COVID Recommendations: Continue dexamethasone 6 mg IV/PO daily for 10 days Continue Remdesivir 200 mg IV q day x 1 day followed by 100 mg IV q day x 4 days Start Tocilizumab 8 mg/kg IV x 1 Obtain daily inflammatory markers - ferritin, Ddimer, CRP, LDH Consider prophylactic anticoagulation Obtain exercise pulse oximeter - O2 sats after 6 minutes walk test inside room, document in chart Will follow Liane Jarvis MD Infectious Diseases [employer] [facility] ([facility]) M [phone] O [phone]
[2020-06-11] MEDS ORDERED: TOCILIZUMAB 400 MG in SODIUM CHLORIDE 0.9% 100 ML IV ONE (20:00)
[2020-06-11] MEDS: hydrALAZINE 20 MG/1 ML INJ IV PRN (23:27)
[2020-06-12] MEDS: SODIUM CHLORIDE 0.9% 50 ML IVPB IV SCH ×3 (00:05→23:37)
[2020-06-12] MEDS: REMDESIVIR 100 MG in SODIUM CHLORIDE 0.9% 250ML 250 ML IV SCH ×2 (00:06→21:57)
[2020-06-12] MEDS: ALPRAZolam 0.25 MG TAB PO PRN (00:13)
--- NOTE | 2020-06-12 07:55 | Progress Note ---
Assessment and Plan Assessment and plan: --Type 2 diabetes mellitus; uncontrolled due to steroid use Accu-Chek sliding scale coverage ADA diet Add long-acting insulin Novolin 70/30 8 units twice a day Monitor blood sugars and adjust as needed --Recently positive COVID-19; COVID-19 test positive 06/09/2020 Droplet and contact isolation precautions PPE protocols, supportive care Check inflammatory markers, steroids D-dimer; 146.29, CRP; 7.20 Ferritin; 1097, LDH; 265 Continue dexamethasone 6 mg daily x 10 days ID started IV Remdesivir x 5 days Tocilizumab x 1 dose --Hyperkalemia; potassium 5.6, 1 dose Kayexalate Monitor electrolytes --Left-sided pneumonia; bacterial versus viral Follow cultures. DC Rocephin and Zithromax --Mild hyponatremia; significantly improved Continue IV normal saline, monitor electrolytes --Morbid obesity; BMI 40.0 Patient needs weight reduction when medically stable --DVT prophylaxis; Lovenox --Full CODE STATUS; Monitor closely and adjust the management as needed Home oxygen evaluation prior to discharge Plan of care reviewed with the patient and her nurse 06/12/20 room air 91% of 02 sat, Room air 02 sat 89% on ambulation, on 2liters, 02 sat 92%. History Interval history: Seen and examined at the bedside this morning Isolation precautions, PPE protocols observed Feels better no new complaints Vital signs noted Hospitalist Physical - Constitutional Vitals: Temp Pulse Resp BP Pulse Ox 97.8 F 81 18 138/70 92 06/12/20 03:53 06/12/20 06:07 06/12/20 06:07 06/12/20 06:07 06/12/20 06:07 General appearance: Present: mild distress, well-nourished, obese - EENT Eyes: Present: PERRL, EOM intact - Neck Neck: Present: supple, normal ROM - Respiratory Respiratory effort: normal Respiratory: bilateral: diminished, negative: rales, rhonchi, wheezing - Cardiovascular Rhythm: regular Heart Sounds: Present: S1 & S2 - Extremities Extremities: no ischemia, No edema - Abdominal General gastrointestinal: soft, non-tender, non-distended, normal bowel sounds - Integumentary Integumentary: Present: clear, warm - Psychiatric Psychiatric: appropriate mood/affect, cooperative - Neurologic Neurologic: moves all extremities HEART Score - HEART Score Troponin: Troponin T < 0.010 ng/mL (0.00-0.029) 06/08/20 11:59 Results - Labs CBC & Chem 7: 06/08/20 10:26 06/12/20 10:40 Labs: Laboratory Last Values WBC 7.1 K/mm3 (4.5-11.0) 06/08/20 10: RBC 5.01 M/mm3 (3.65-5.03) 06/08/20 10:26 Hgb 15.4 gm/dl (10.1-14.3) H 06/08/20 10:26 Hct 46.8 % (30.3-42.9) H 06/08/20 10: MCV 93 fl (79-97) 06/08/20 10: MCH 31 pg (28-32) 06/08/20 10: MCHC 33 % (30-34) 06/08/20 10: RDW 13.0 % (13.2-15.2) L 06/08/20 10: Plt Count 223 K/mm3 (140-440) 06/08/20 10: Lymph % (Auto) 22.7 % (13.4-35.0) 06/08/20 10: [place] % (Auto) 9.4 % (0.0-7.3) H 06/08/20 10: Eos % (Auto) 0.0 % (0.0-4.3) 06/08/20 10: Baso % (Auto) 0.3 % (0.0-1.8) 06/08/20 10:26 Lymph # 1.6 K/mm3 (1.2-5.4) 06/08/20 10: [place] # 0.7 K/mm3 (0.0-0.8) 06/08/20 10: Eos # 0.0 K/mm3 (0.0-0.4) 06/08/20 10: Baso # 0.0 K/mm3 (0.0-0.1) 06/08/20 10:26 Seg Neutrophils % 67.6 % (40.0-70.0) 06/08/20 10: Seg Neutrophils # 4.8 K/mm3 (1.8-7.7) 06/08/20 10:26 D-Dimer 146.29 ng/mlDDU (0-234) 06/08/20 11:59 Sodium 138 mmol/L (137-145) 06/10/20 07:37 Potassium 5.6 mmol/L (3.6-5.0) H 06/10/20 07:37 Chloride 100.5 mmol/L (98-107) 06/10/20 07:37 Carbon Dioxide 20 mmol/L (22-30) L 06/10/20 07:37 Anion Gap 23 mmol/L 06/10/20 07:37 BUN 24 mg/dL (7-17) H 06/10/20 07:37 Creatinine 0.9 mg/dL (0.7-1.2) 06/10/20 07:37 Estimated GFR > 60 ml/min 06/10/20 07:37 BUN/Creatinine Ratio 27 % 06/10/20 07:37 Glucose 236 mg/dL (65-100) H 06/10/20 07:37 POC Glucose 384 (70-105) H 06/11/20 22:25 Calcium 8.7 mg/dL (8.4-10.2) 06/10/20 07:37 Ferritin 1097.0 ng/mL (13.0-400.0) H 06/08/20 11:59 Total Bilirubin 0.20 mg/dL (0.1-1.2) 06/08/20 10:26 AST 58 units/L (5-40) H 06/08/20 10:26 ALT 51 units/L (7-56) 06/08/20 10:26 Alkaline Phosphatase 90 units/L (35-129) 06/08/20 10:26 Lactate Dehydrogenase 265 units/L (91-180) H 06/08/20 11:59 Troponin T < 0.010 ng/mL (0.00-0.029) 06/08/20 11:59 C-Reactive Protein 7.20 mg/dL (0.00-1.30) H 06/08/20 11:59 NT-Pro-B Natriuret Pep 31.82 pg/mL (0-900) 06/08/20 11:59 Total Protein 7.4 g/dL (6.3-8.2) 06/08/20 10:26 Albumin 3.4 g/dL (3.9-5) L 06/08/20 10:26 Albumin/Globulin Ratio 0.9 % 06/08/20 10:26 Procalcitonin 0.17 ng/mL (<0.15) 06/08/20 11:59 Nasal Screen MRSA (PCR) Positive (Negative) 06/09/20 Unknown Coronavirus (PCR) Positive (Negative) A 06/08/20 Unknown Mahoney/IV: Voiding Method Bedside Commode IV Catheter Type [Right Upper Mid-line arm] IV Catheter Type [Right Peripheral IV Antecubital] IV Catheter Type [Left Upper Peripheral IV arm] Active Medications - Current Medications Current Medications: Generic Name Dose Route Start Last Admin Trade Name Freq PRN Reason Stop Dose Admin Acetaminophen 650 mg 06/08/20 15:11 Tylenol PO Q4H PRN Pain, Mild (1-3) Alprazolam 0.25 mg 06/10/20 09:54 06/12/20 00:13 Xanax PO 0.25 mg Q8H PRN Administration Anxiety Dexamethasone 6 mg 06/09/20 10:00 06/11/20 12:23 Decadron PO 06/18/20 10:01 6 mg DAILY MARIEL Administration Hydralazine HCl 10 mg 06/11/20 22:56 06/11/20 23:27 Apresoline IV 10 mg Q4HR PRN Administration htn Sodium Chloride 1,000 mls @ 100 mls/hr 06/08/20 15:15 06/11/20 18:53 Nacl 0.9% 1000 Ml IV 100 mls/hr DIRECT MARIEL Administration REMDESIVIR 100 mg/ Sodium 250 mls @ 500 mls/hr 06/11/20 21:00 06/12/20 00:06 Chloride IV 06/14/20 21:29 500 mls/hr Q24HR@2100 MARIEL Administration Insulin Human Isoph/Insulin Regular 8 unit 06/12/20 08:00 Humulin 70/30 SUB-Q BIDDIAB MARIEL Insulin Human Regular 0 units 06/11/20 03:30 06/11/20 23:27 Humulin R SUB-Q 8 units ACHS MARIEL Administration Protocol Morphine Sulfate 2 mg 06/08/20 15:11 06/10/20 20:29 Morphine IV 2 mg Q4H PRN Administration Pain, Moderate (4-6) Pseudoephedrine/Acetam/Chlorphenir 10 ml 06/10/20 09:30 06/11/20 01:33 Robitussin Ac PO 10 ml Q6H PRN Administration Cough Sodium Chloride 50 ml 06/11/20 21:00 06/12/20 01:04 Nacl 0.9% IV 06/14/20 21:01 50 ml Q24H MARIEL Administration
[2020-06-12] MEDS: DEXAMETHASONE 4 MG TAB PO SCH (09:29)
[2020-06-12] MEDS: INSULIN REGULAR, HUMAN 100 UNITS/1 ML SUB-Q SCH ×4 (09:29→21:58)
[2020-06-12] MEDS: INSULIN NPH/REGULAR 70/30 INJ SUB-Q SCH ×2 (09:29→17:46)
[2020-06-12 11:18] LABS: BUN/Creatinine Ratio 22; Blood Urea Nitrogen 13 mg/dL (7-17); Calcium 8.6 mg/dL (8.4-10.2); Hemolysis Index 4
[2020-06-12] MEDS: hydrALAZINE 20 MG/1 ML INJ IV PRN (21:57)
[2020-06-12] MEDS: MORPHINE 2 MG/1 ML INJ IV PRN (23:54)
[2020-06-13 08:34] LABS: C-Reactive Protein 1.1 mg/dL (0.00-1.30)
[2020-06-13] MEDS: INSULIN REGULAR, HUMAN 100 UNITS/1 ML SUB-Q SCH ×3 (08:44→17:24)
[2020-06-13] MEDS: DEXAMETHASONE 4 MG TAB PO SCH (09:56)
[2020-06-13] MEDS: INSULIN NPH/REGULAR 70/30 INJ SUB-Q SCH ×2 (09:56→17:24)
--- NOTE | 2020-06-13 15:58 | Progress Note ---
Assessment and Plan Cultures: None COVID-19 test positive Assessment: 59-year-old female with history of obesity, who was recently diagnosed with positive COVID-19 at [facility] admitted for 3 days and was discharged, admitted to [facility] on 06/08/2020 due to several days history of worsening shortness of breath cough and generalized malaise: #Sepsis: likely due to bilateral pneumonia #Severe COVID-19 pneumonia: Patient presented with a week of symptoms, chest x- ray with diffuse bilateral infiltrates. Inflammatory markers elevated - ferritin 1097, CRP 7.2., D-dimer normal. Likely cytokine release syndrome. Status post Tocilizumab, on dexamethasone and remdesivir #Acute hypoxemic respiratory failure: Currently on 2 L nasal cannula sats 90 %. #Elevated LFTs: from COVID Recommendations: Prone positioning Continue dexamethasone 6 mg IV/PO daily for 10 days Continue Remdesivir 200 mg IV q day x 1 day followed by 100 mg IV q day x 4 days Obtain daily inflammatory markers - ferritin, Ddimer, CRP, LDH Consider prophylactic anticoagulation Obtain exercise pulse oximeter - O2 sats after 6 minutes walk test inside room, document in chart Will follow Liane Jarvis MD Infectious Diseases Surgical Resident [facility] ([facility]) M [phone] O [phone] Subjective Date of service: 06/13/20 Principal diagnosis: COVID-19 Interval history: Remains on nasal cannula O2 2 L sats 90%, no fever Objective - Exam Narrative Exam: Exam reviewed hospitalist notes, limited due to conservation of PPE General appearance: limited due to conservation of PPE Eyes: limited due to conservation of PPE HENT: Atraumatic; limited due to conservation of PPE Lungs: limited due to conservation of PPE CV: limited due to conservation of PPE Abdomen: limited due to conservation of PPE Extremities: limited due to conservation of PPE Skin: limited due to conservation of PPE Psych: limited due to conservation of PPE - Constitutional Vitals: Vital Signs Temp Pulse Resp BP Pulse Ox 98.3 F 85 20 114/62 90 06/13/20 11:41 06/13/20 11:41 06/13/20 11:41 06/13/20 11:41 06/13/20 11:41 Temperature -Last 24 Hours Temperature 98.3 F Temperature 98.2 F Temperature 98.9 F Temperature 98.0 F - Labs CBC & Chem 7: 06/08/20 10:26 06/12/20 10:40 Labs: Abnormal lab results 06/12/20 06/12/20 06/13/20 Range/Units 17:35 21:56 07:43 POC Glucose 315 H 209 H (70-105) Ferritin 483.0 H (13.0-400.0) ng/mL Lactate Dehydrogenase (91-180) units/L 06/13/20 06/13/20 06/13/20 Range/Units 07:43 08:12 11:56 POC Glucose 126 H 159 H (70-105) Ferritin (13.0-400.0) ng/mL Lactate Dehydrogenase 269 H (91-180) units/L
--- NOTE | 2020-06-13 16:40 | Progress Note ---
Assessment and Plan Assessment and plan: --Type 2 diabetes mellitus; uncontrolled due to steroid use Accu-Chek sliding scale coverage ADA diet Add long-acting insulin Novolin 70/30 8 units twice a day Monitor blood sugars and adjust as needed --COVID-19 test positive 06/09/2020 Patient had positive COVID-19 at [facility]; Droplet and contact isolation precautions PPE protocols, supportive care Check inflammatory markers, steroids D-dimer; 146.29, CRP; 7.20 Ferritin; 1097, LDH; 265 Continue dexamethasone 6 mg daily x 10 days on IV Remdesivir x 5 days s/pTocilizumab x 1 dose --Hyperkalemia; potassium 5.6, resolved --Left-sided pneumonia; COVID/ viral pneumonia Follow cultures. DC Rocephin and Zithromax --Mild hyponatremia; significantly improved Continue IV normal saline, monitor electrolytes --Morbid obesity; BMI 40.0 -36.5 Patient needs weight reduction when medically stable --DVT prophylaxis; Lovenox --Full CODE STATUS; Monitor closely and adjust the management as needed Home oxygen evaluation prior to discharge Plan of care reviewed with the patient and her nurse 06/12/20 room air 91% of 02 sat, Room air 02 sat 89% on ambulation, on 2liters, 02 sat 92%. Evaluate for home oxygen 06/13/20; patient is receiving dexamethasone and Remdesivir, hospital discharge in 1 to 2 days if stable History Interval history: Patient seen and examined medical records reviewed Isolation precautions, PPE protocols observed Patient feels slightly better wants to go home Still has mild shortness of breath, on Decadron and remdesivir Vital signs reviewed Hospitalist Physical - Constitutional Vitals: Temp Pulse Resp BP Pulse Ox 98.3 F 85 20 114/62 90 06/13/20 11:41 06/13/20 11:41 06/13/20 11:41 06/13/20 11:41 06/13/20 11:41 General appearance: Present: mild distress, well-nourished, obese - EENT Eyes: Present: PERRL, EOM intact - Neck Neck: Present: supple, normal ROM - Respiratory Respiratory effort: normal Respiratory: bilateral: diminished, rhonchi, negative: rales, wheezing - Cardiovascular Rhythm: regular Heart Sounds: Present: S1 & S2 - Extremities Extremities: no ischemia, No edema - Abdominal General gastrointestinal: soft, non-tender, non-distended, normal bowel sounds - Integumentary Integumentary: Present: clear, warm - Psychiatric Psychiatric: appropriate mood/affect, cooperative - Neurologic Neurologic: moves all extremities HEART Score - HEART Score Troponin: Troponin T < 0.010 ng/mL (0.00-0.029) 06/08/20 11:59 Results - Labs CBC & Chem 7: 06/08/20 10:26 06/12/20 10:40 Labs: Laboratory Last Values WBC 7.1 K/mm3 (4.5-11.0) 06/08/20 10: RBC 5.01 M/mm3 (3.65-5.03) 06/08/20 10: Hgb 15.4 gm/dl (10.1-14.3) H 06/08/20 10:26 Hct 46.8 % (30.3-42.9) H 06/08/20 10: MCV 93 fl (79-97) 06/08/20 10: MCH 31 pg (28-32) 06/08/20 10: MCHC 33 % (30-34) 06/08/20 10: RDW 13.0 % (13.2-15.2) L 06/08/20 10: Plt Count 223 K/mm3 (140-440) 06/08/20 10: Lymph % (Auto) 22.7 % (13.4-35.0) 06/08/20 10: [place] % (Auto) 9.4 % (0.0-7.3) H 06/08/20 10: Eos % (Auto) 0.0 % (0.0-4.3) 06/08/20 10: Baso % (Auto) 0.3 % (0.0-1.8) 06/08/20 10: Lymph # 1.6 K/mm3 (1.2-5.4) 06/08/20 10: [place] # 0.7 K/mm3 (0.0-0.8) 06/08/20 10: Eos # 0.0 K/mm3 (0.0-0.4) 06/08/20 10: Baso # 0.0 K/mm3 (0.0-0.1) 06/08/20 10:26 Seg Neutrophils % 67.6 % (40.0-70.0) 06/08/20 10:26 Seg Neutrophils # 4.8 K/mm3 (1.8-7.7) 06/08/20 10:26 D-Dimer 78.42 ng/mlDDU (0-234) 06/13/20 07:43 Sodium 140 mmol/L (137-145) 06/12/20 10:40 Potassium 3.7 mmol/L (3.6-5.0) D 06/12/20 10:40 Chloride 101.9 mmol/L (98-107) 06/12/20 10:40 Carbon Dioxide 25 mmol/L (22-30) 06/12/20 10:40 Anion Gap 17 mmol/L 06/12/20 10:40 BUN 13 mg/dL (7-17) 06/12/20 10:40 Creatinine 0.6 mg/dL (0.7-1.2) L 06/12/20 10:40 Estimated GFR > 60 ml/min 06/12/20 10:40 BUN/Creatinine Ratio 22 % 06/12/20 10:40 Glucose 159 mg/dL (65-100) H 06/12/20 10:40 POC Glucose 159 (70-105) H 06/13/20 11:56 Calcium 8.6 mg/dL (8.4-10.2) 06/12/20 10:40 Ferritin 483.0 ng/mL (13.0-400.0) H 06/13/20 07:43 Total Bilirubin 0.20 mg/dL (0.1-1.2) 06/08/20 10:26 AST 58 units/L (5-40) H 06/08/20 10:26 ALT 51 units/L (7-56) 06/08/20 10:26 Alkaline Phosphatase 90 units/L (35-129) 06/08/20 10:26 Lactate Dehydrogenase 269 units/L (91-180) H 06/13/20 07:43 Troponin T < 0.010 ng/mL (0.00-0.029) 06/08/20 11:59 C-Reactive Protein 1.10 mg/dL (0.00-1.30) 06/13/20 07:43 NT-Pro-B Natriuret Pep 31.82 pg/mL (0-900) 06/08/20 11:59 Total Protein 7.4 g/dL (6.3-8.2) 06/08/20 10:26 Albumin 3.4 g/dL (3.9-5) L 06/08/20 10:26 Albumin/Globulin Ratio 0.9 % 06/08/20 10:26 Procalcitonin 0.17 ng/mL (<0.15) 06/08/20 11:59 Nasal Screen MRSA (PCR) Positive (Negative) 06/09/20 Unknown Coronavirus (PCR) Positive (Negative) A 06/08/20 Unknown [place]/IV: Voiding Method Toilet IV Catheter Type [Right Upper Mid-line arm] IV Catheter Type [Right Peripheral IV Antecubital] IV Catheter Type [Left Upper Peripheral IV arm] Active Medications - Current Medications Current Medications: Generic Name Dose Route Start Last Admin Trade Name Freq PRN Reason Stop Dose Admin Acetaminophen 650 mg 06/08/20 15:11 Tylenol PO Q4H PRN Pain, Mild (1-3) Alprazolam 0.25 mg 06/10/20 09:54 06/12/20 00:13 Xanax PO 0.25 mg Q8H PRN Administration Anxiety Dexamethasone 6 mg 06/09/20 10:00 06/13/20 09:56 Decadron PO 06/18/20 10:01 6 mg DAILY MARIEL Administration Hydralazine HCl 10 mg 06/11/20 22:56 06/12/20 21:57 Apresoline IV 10 mg Q4HR PRN Administration htn Sodium Chloride 1,000 mls @ 100 mls/hr 06/08/20 15:15 06/11/20 18:53 Nacl 0.9% 1000 Ml IV 100 mls/hr DIRECT MARIEL Administration REMDESIVIR 100 mg/ Sodium 250 mls @ 500 mls/hr 06/11/20 21:00 06/12/20 21:57 Chloride IV 06/14/20 21:29 500 mls/hr Q24HR@2100 MARIEL Administration Insulin Human Isoph/Insulin Regular 8 unit 06/12/20 08:30 06/13/20 09:56 Humulin 70/30 SUB-Q 8 unit BIDDIAB MARIEL Administration Insulin Human Regular 0 units 06/11/20 03:30 06/13/20 12:41 Humulin R SUB-Q 2 units ACHS MARIEL Administration Protocol Morphine Sulfate 2 mg 06/08/20 15:11 06/12/20 23:54 Morphine IV 2 mg Q4H PRN Administration Pain, Moderate (4-6) Pseudoephedrine/Acetam/Chlorphenir 10 ml 06/10/20 09:30 06/11/20 01:33 Robitussin Ac PO 10 ml Q6H PRN Administration Cough Sodium Chloride 50 ml 06/11/20 21:00 06/12/20 23:37 Nacl 0.9% IV 06/14/20 21:01 50 ml Q24H MARIEL Administration
[2020-06-13 17:46] VITALS: BP 141/77
[2020-06-13] MEDS ORDERED: ENOXAPARIN 100 MG/1 ML INJ SUB-Q SCH (22:00)
== END 2020-06-13 20:48 | disposition left against medical advice (07) | DRG 871 ==
LOC: ED 10:11 → 3A 13:04
PROVIDERS: ADMIT Internal Medicine; ATTEND Internal Medicine
PROC: 05HY33Z Insertion of Infusion Device into Upper Vein, Percutaneous Approach (ICD-10-PCS; principal; 2020-06-10)
DX: A41.9 Sepsis, unspecified organism (principal); U07.1 COVID-19; J12.89 Other viral pneumonia; J96.01 Acute respiratory failure with hypoxia; E87.1 Hypo-osmolality and hyponatremia; E11.9 Type 2 diabetes mellitus without complications; E87.5 Hyperkalemia; E66.01 Morbid (severe) obesity due to excess calories; I11.0 Hypertensive heart disease with heart failure; I50.9 Heart failure, unspecified; Z90.49 Acquired absence of other specified parts of digestive tract; Z68.36 Body mass index [BMI] 36.0-36.9, adult; Z90.710 Acquired absence of both cervix and uterus; Z82.49 Family history of ischemic heart disease and other diseases of the circulatory system; Z88.0 Allergy status to penicillin
CPT/HCPCS: 36415; 71045; 80048; 80053; 82728; 82962; 83615; 83880; 84145; 84484; 85025; 85379; 86140; 93005; 94760; G0378; J0360; J0456; J0696; J1815; J2270; J2405; J2920; J2930; J7030; J7050; J8540; U0003-CS